=== PATIENT | female | born 1980 | race Caucasian/White ===

== ENCOUNTER → 2017-05-04 | Day surgery (SDC) | payer OTHER ==
[~2017-05-04] VITALS: Ht 157.5 cm; Wt 54.0 kg
[~2017-05-04] MED LIST: 5HTP PO; ACETAMINOPHEN/HYDROcodone 325 MG/5 MG TAB PO PRN; APREPITANT 40 MG CAP ONE; BUPIVACAINE/EPINEPHRINE 0.5% PF 10 ML VIAL INFIL ONE; CHLORHEXIDINE GLUCONATE 2 % 1 PACK (2 CLOTHS) TOPICAL PRN; CHLORHEXIDINE GLUCONATE 4% SOLN 120 ML BTL TOPICAL SCH; FAMOTIDINE 20 MG/2 ML VIAL ONE; INSULIN HUMAN REGULAR 1,000 UNITS/10 ML VIAL SQ PRN; KETOROLAC TROMETHAMINE 30 MG/ML (IVP) VIAL IM PRN; LACTATED RINGER'S 1000 ML IV PRN; METO25TA3 PO; METOCLOPRAMIDE HCL 10 MG/2 ML VIAL ONE; METOPROLOL TARTRATE 25 MG TAB PO PRN; MIDAZOLAM HCL 2 MG/2 ML VIAL ONE; MORPHINE SULFATE 4 MG/ML INJ ONE; MULTTAB77 PO; ONDANSETRON HCL 4 MG/2 ML VIAL IV PUSH ONE; ONDANSETRON HCL 4 MG/2 ML VIAL IV PUSH PRN; POVIDONE IODINE 5% (ANTISEPSIS KIT) 4 APPLICATIONS EACH NARE PRN; PROPOFOL 200 MG/20 ML AMP IV ONE; SODIUM CHLORID 0.9% 500 ML IV PRN; ZOFR4TAB PO; ePHEDrine/NS 25 MG/5 ML SYR IV ONE
[2017-05-04 07:58] VITALS: BP 116/76; PULSE 58; RESP 18; TEMP 97.5; O2SAT 99
[2017-05-04 10:40] VITALS: BP 107/62; PULSE 84; RESP 16; TEMP 98; O2SAT 99
--- NOTE | 2017-05-05 23:14 | MP ---
cc: WILLIAMS LIEBERMAN M.D. DATE OF SURGERY 05/04/[address] Maggy Lieberman PREOPERATIVE DIAGNOSIS Possible internal derangement with torn medial or lateral meniscectomy. POSTOPERATIVE DIAGNOSIS Old tear medial meniscus right knee joint. PROCEDURE Arthroscopic subtotal medial meniscectomy, right knee joint. PROCEDURE IN DETAIL The patient was placed on the operating table in the supine position. Adequate general anesthesia was administered by the anesthesiologist. The patient's right knee was prepped and draped in the usual sterile fashion. Time-out was called and the patient's name, procedure and location fully confirmed. An anterolateral stab wound was made and a portal created and the joint was distended with lactated Ringer's solution. No joint fluid was noted. A systematic examination of the knee joint was unremarkable except for what appeared to be previous possible subtotal resection of a part of the medial meniscus with a tear from the middle one-third all the way to the anterior horn. The resector was placed through an anteromedial portal and a resection of the torn portion of the medial meniscus was excised down to normal appearing tissue. The intercondylar fossa including the cruciate ligaments were pristine and intact. Lateral compartment also appeared to be pristine and intact. The patellofemoral joint was unremarkable. A thorough aspiration of fluid was carried out followed by removal of all instrumentation. The two stab wounds were then closed with simple 3-0 nylon. An intra-articular injection through the lateral portal was carried out with 10 mL of 0.5% Marcaine with epi. Sponge count, needle counts and instrument counts were reported correct x2. The estimated tourniquet time was 13 minutes. The procedure was tolerated well with the patient being transferred to the recovery room in satisfactory and stable condition. Williams Lieberman MD [facility]/ /9:32 AM /11:06 PM
== END | disposition home or self-care (01) ==
LOC: PHSDC 07:01
PROVIDERS: ATTEND Orthopaedic Surgery
DX: M23.211 Derangement of anterior horn of medial meniscus due to old tear or injury, right knee (principal); K21.9 Gastro-esophageal reflux disease without esophagitis; K25.9 Gastric ulcer, unspecified as acute or chronic, without hemorrhage or perforation
CPT/HCPCS: 01400; 29881; E0113; J2250; J2270; J2405; J2765; J3010; J7120; J8501